=== PATIENT | female | born 1990 | race Caucasian/White ===

== ENCOUNTER 2024-10-05 16:04 | Outpatient (CLI) | payer OTHER, SELFPAY ==
[2024-10-05 23:04] LABS: Chlamydia DNA Amplified* NOT DETECTED (No Detected); GC DNA Amplified* NOT DETECTED (No Detected)
[2024-10-12 15:53] LABS: HPV Source Cervix; HPV, High Risk by TMA Not Detected
== END 2024-10-05 16:05 | disposition home or self-care (01) ==
PROVIDERS: PCP Physician Assistant Medical; Visit Provider Physician Assistant Medical
DX: Z11.4 Encounter for screening for human immunodeficiency virus [HIV] (principal); Z11.3 Encounter for screening for infections with a predominantly sexual mode of transmission; Z11.51 Encounter for screening for human papillomavirus (HPV); Z12.4 Encounter for screening for malignant neoplasm of cervix
CPT/HCPCS: 80053; 80061; 82607; 82728; 83540; 83550; 84443; 86140; 86703; 86803; 87491; 87591; 87624; 87625; 88141; 88142

== ENCOUNTER 2024-10-06 10:43 | Outpatient (CLI) | payer OTHER, SELFPAY | END 2024-10-06 10:44 | disposition home or self-care (01) | LOC: NFLDREF 10-12 15:53 | PROVIDERS: PCP Physician Assistant Medical; Referring Provider Physician Assistant Medical; Visit Provider Physician Assistant Medical | DX: D64.9 Anemia, unspecified (principal); R61 Generalized hyperhidrosis; N94.6 Dysmenorrhea, unspecified; Z13.6 Encounter for screening for cardiovascular disorders; Z13.21 Encounter for screening for nutritional disorder; Z11.59 Encounter for screening for other viral diseases | CPT/HCPCS: 80053; 80061; 82607; 82728; 83540; 83550; 84443; 86140; 86803 ==